=== PATIENT | female | born 1995 | race American Indian/Alaskan Native ===

== ENCOUNTER 2019-08-22 10:30 | Emergency (ER) | payer SELFPAY ==
[2019-08-22 10:36] VITALS: BP 132/62
--- NOTE | 2019-08-22 11:51 | Emergency Department Report ---
Chief Complaint: Urogenital-Female Stated Complaint: VAG IRRITATION/ABD CRAMPS/DIZZY Time Seen by Provider: 08/22/19 11:41 - HPI History of Present Illness: 24 y/o female comes in complaining of intermittent headache, vaginal irritation, mild abdominal pain for 1 week. Patient denies any vaginal bleeding denies any vomiting denies any diarrhea does admit to mild nausea. Patient is taken nothing for her headache. Patient reports she has a primary care provider numb er doesn't know his name and did not follow up. - Exam Vital Signs: Vital Signs 08/22/19 10:32 Temperature 99 F Pulse Rate 82 Respiratory 20 Rate Blood Pressure 132/62 O2 Sat by Pulse 99 Oximetry MSE screening note: Focused history and physical exam performed. Due to findings the following was ordered: 24 y/o female comes in complaining of intermittent headache, vaginal irritation, mild abdominal pain for 1 week. Patient denies any vaginal bleeding denies any vomiting denies any diarrhea does admit to mild nausea. Patient is taken nothing for her headache. Patient reports she has a primary care provider number doesn't know his name and did not follow up. Patient was offered ibuprofen she refused to take anything for her pain. Patient will be referred to her primary care provider. ED Disposition for MSE Disposition: Z- MED SCREENING EXAM-LEFT Is pt being admited?: No Does the pt Need Aspirin: No Condition: Stable
== END 2019-08-22 12:17 | disposition left against medical advice (07) ==
LOC: ED 10:30
DX: N89.8 Other specified noninflammatory disorders of vagina (principal); R51 Headache; R10.9 Unspecified abdominal pain
CPT/HCPCS: 99281